=== PATIENT | male | born 2000 | race Caucasian/White ===

== ENCOUNTER → 2019-07-22 | Outpatient (CLI) | payer OTHER, SELFPAY ==
[2019-07-22 11:30] VITALS: BMI 26.5
[2019-07-22 14:07] LABS: ALB/GLOB Ratio 1.3 RATIO (0.9-2.4); AST(SGOT) 28 U/L (15-37); Alanine Aminotransfer ALT/SGPT 44 U/L (16-61); Albumin, Serum 4.4 g/dL (3.2-5.0); Alkaline Phosphatase 69 U/L (45-117); Anion Gap 6 (5-15); BUN 17 mg/dL (7-18); BUN/Creat Ratio 16.7 RATIO (10-20); Calcium,Total 9.4 mg/dL (8.5-10.1); Chloride 105 mmol/L (98-107); Creatinine, Serum 1.02 mg/dL (0.70-1.30); EST Glomerular Filtration Rate 98 mL/min (>60); Est Glom Filt Rate - Afr Amer 118 mL/min (>60); Free T3 3.5 pg/mL (2.18-3.98); Globulin 3.5 g/dL (2.2-4.2); Glucose 90 mg/dL (74-106); Magnesium 2.1 mg/dL (1.6-2.6); Potassium 4.2 mmol/L (3.5-5.1); Protein, Total 7.9 g/dL (6.4-8.2); Sodium Level 139 mmol/L (136-145); T4 Total, Thyroxin 10.7 ug/dL (4.5-12.1); Thyroid Stim Hormone (TSH) 1.08 uIU/mL (0.358-3.74)
== END | disposition home or self-care (01) ==
LOC: LAB 12:27
PROVIDERS: Referring Provider Specialist; Visit Provider Specialist
DX: R00.2 Palpitations (principal)
CPT/HCPCS: 36415; 80053; 83735; 84436; 84443; 84481

== ENCOUNTER 2019-07-30 19:17 | Emergency (ER) | payer OTHER, SELFPAY ==
[2019-07-22 11:30] VITALS: BMI 26.5
[2019-07-30 19:18] VITALS: BP 126/86; PULSE 105; RESP 18; TEMP 38.1; O2SAT 95; BMI 27.1
--- NOTE | 2019-07-30 19:44 | ED.DCSUM_ITS ---
History of Present Illness Chief Complaint: Sore Throat Informant: Patient, Family, Significant Other Onset: Days - Onset of symptoms July 28 Context: Sudden Onset Timing: Continuous Quality: Throat pain Location: Posterior pharynx Current Severity: Mild Maximum Severity: Moderate Worsened by: Swallowing Relieved by: Nothing Associated Symptoms: Fever without rhinorrhea or cough Narrative: She is a 19-year-old male presents with sore throat fever with onset July 28. He denies rhinorrhea or congestion. He denies cough. He has slight muffled voice. He denies ocular, visual auditory symptoms. Has no history of rheumatic fever, heart murmur, SBE or being immune suppressed. He denies abdominal pain specifically left upper quadrant. There is no pain referred to the shoulder in supine position or breathing. He denies myalgias arthralgias. He denies rash. Prior similar symptoms: No Recent Illness/Hospitalization: Yes - Past Medical History (1) No significant past medical history Status: Acute Past Medical History - Allergies and Home Meds Allergies/Adverse Reactions: Allergies No Known Allergies Allergy (Unverified 07/30/19 19:20) Primary Care Physician: Care Physician,No Primary [Primary Care Provider] - Prior records reviewed: No Past Medical History: None Surgical History: no surgical history Lives: With Family Smoking Status: Never smoker Alcohol: None Drugs: None Review of Systems General: Reports: Chills, Fever. Denies: Malaise, Subjective, Sweats Eyes: Denies: Visual changes - bilaterally, Blurred Vision - bilaterally, Dipl opia ENT: Reports: Sore throat. Denies: Bilateral ear pain, Rhinorrhea Cardiovascular: Denies: Chest pain, Palpitations Respiratory: Denies: Dyspnea, Cough, Dyspnea on exertion Gastrointestinal: Denies: Abdominal pain, Nausea, Vomiting, Diarrhea, Melena, Hematochezia Genitourinary: Denies: Hematuria Musculoskeletal: Denies: Myalgias, Arthralgias, Neck pain, Back pain Skin: Denies: Rash Neurological: Denies: Headache, Weakness Hematologic: Denies: Easy bruising, Easy bleeding Physical Exam Vital Signs/Narrative: Vital Signs Temp Pulse Resp BP Pulse Ox 07/30/19 19:18 100.5 F H 105 H 18 126/86 H 95 Inital Vital Signs reviewed: Yes General: Well nourished, Well developed, No Acute Distress Head: Normocephalic, Atraumatic Eyes: Perrl, EOMI. Negative for: Pale conjunctiva, Scleral icterus ENT: Moist mucous membranes, No rhinorrhea, TM's clear, - - There is swelling of the tonsils with erythema and exudate. Uvula is midline.. Negative for: Nasal congestion, Sinus tenderness Neck: Supple, Nontender, No JVD. Negative for: No lymphadenopathy Cardiovascular: Regular rhythm, No murmurs, Normal S1, Normal S2, Tachycardia Respiratory: No distress, CTA bilaterally, Chest nontender Abdomen: Soft, Nontender, Nondistended, Normal bowel sounds, No masses. Negative for: Hepatomegaly, Splenomegaly Extremities: Nontender, No edema Skin: Normal color, No rash, No Trauma. Negative for: Cyanosis, Diaphoresis, Jaundice Neurological: Alert, Oriented x3, Cranial nerves II-XII grossly intact, Normal Strength, Normal Sensation Psychological: Normal affect, Normal Mood Diagnostic/Tx/Re-eval 07/30/19 19:45 Mucosa - Throat Group A Streptococcus Rapid Screen - Preliminary Laboratory Results 07/30/19 20:05 WBC 7.9 RBC 5.24 Hgb 15.8 Hct 45.7 MCV 87.2 MCH 30.2 MCHC 34.6 RDW Std Deviation 38.2 RDW Coeff of Mitchell 11.9 Plt Count 181 MPV 9.1 Immature Gran % (Auto) 0.500 Neut % (Auto) 79.8 H Lymph % (Auto) 10.8 L [place] % (Auto) 7.6 Eos % (Auto) 1.0 Baso % (Auto) 0.3 Absolute Neuts (auto) 6.3 Absolute Lymphs (auto) 0.86 Nucleated RBC % 0 Differential Comment SCANNED White count is normal with normal differential and no atypical lymphs to suggest mononucleosis. Rapid strep is negative. Presumed viral infection - Medical Decision Making Screen was obtained. Mother arrived she informed that he was seen at urgent care and had a negative rapid screen for strep. This may be secondary to a false negative result or mononucleosis. CBC was obtained to evaluate for atypical lymphocytes. Monospot was not obtained since Monospot is inaccurate after only 2 days of illness. ED Disposition - Plan for ED Patient: Disposition: Home or Assisted Living Diagnosis: Exudative pharyngitis, Fever Instructions: PHARYNGITIS, Report Pending Referrals: Care Physician,No Primary [Primary Care Provider] - [place],[facility] [GROUP OF PHYSICIANS] - 3-5 Days if not improving
[2019-07-30 20:16] LABS: Absolute Lymphocyte Count 0.86 X10^3/uL (0.83-4.51); Absolute Neutrophil Count 6.3 X10^3/uL (2.0-7.7); Basophil# 0.02 X10^3/uL; Basophil% 0.3 % (0-1); Eosinophil# 0.08 X10^3/uL; Hematocrit 45.7 % (40-54); Hemoglobin 15.8 g/dL (13.0-16.5); Lymphocyte # 0.86 X10^3/ul (4.0); Lymphocyte % 10.8 % (19-41); Mean Corp Hgb Conc 34.6 g/dL (32-36); Mean Corpuscular Hgb 30.2 pg (27.0-32.0); Mean Corpuscular Volume 87.2 fL (80-94); Mean Platelet Vol. 9.1 fl (6.2-12.0); Monocyte% 7.6 % (0-10); NRBC Flagged by Analyzer 0 % (0-5); Neutrophil # 6.34 X10^3/uL (2.7-7.7); Neutrophil % 79.8 % (47-70); POSITIVE MORPHOLOGY YES; Platelet Count 181 K/mm3 (150-450); RBC Distribution Width CV 11.9 % (11.6-14.6); RBC Distribution Width SD 38.2 fl (35.1-43.9); Red Blood Count 5.24 M/mm3 (4.6-6.2); White Blood Count 7.9 K/mm3 (4.4-11.0)
[2019-07-30 20:19] VITALS: BP 154/91; PULSE 103; RESP 16; TEMP 37.4; O2SAT 97
[2019-07-30 20:20] LABS: Differential Indicated SCAN CRITERIA MET
[2019-07-30 20:44] LABS: Differential Comment SCANNED
[2019-07-30 21:19] VITALS: BP 146/80; PULSE 92; RESP 16; TEMP 37.3; O2SAT 95
[2019-07-30 22:29] VITALS: BP 131/78; PULSE 85; RESP 16; O2SAT 96
== END 2019-07-30 22:30 | disposition home or self-care (01) ==
PROVIDERS: Emergency Provider Emergency Medicine
DX: J02.9 Acute pharyngitis, unspecified (principal); R50.9 Fever, unspecified
CPT/HCPCS: 85025; 87880; 99282; A4216

== ENCOUNTER → 2019-08-06 14:52 | Outpatient (CLI) | payer OTHER, SELFPAY ==
[2019-07-22 11:30] VITALS: BMI 26.5
[2019-07-30 19:18] VITALS: BMI 27.1
--- NOTE | 2019-08-06 14:53 | ECHOD_ITS ---
Reason For Study: Palpitations Procedure This was a 2D Doppler, Color Flow transthoracic echocardiogram. Exam performed in department. Left Ventricle Normal size and thickness. The estimated ejection fraction is 55 %. No evidence for diastolic dysfunction. No regional wall motion abnormalities noted. Right Ventricle Normal RV size. Normal systolic function. Atria Normal left atrium. Normal right atrium. No doppler evidence for ASD. Mitral Valve There is no mitral valve stenosis. No mitral valve insufficiency. Tricuspid Valve There is no tricuspid stenosis. Trivial tricuspid valve insufficiency. Normal pulmonary artery pressure. Aortic Valve Trisinus/trileaflet aortic valve. There is no aortic stenosis. No aortic valve insufficiency. Pulmonic Valve There is no pulmonic valvular stenosis. No pulmonic valve insufficiency. Great Vessels Normal aortic root. Pericardium/Pleural No pericardial effusion. MMode/2D Measurements & Calculations LVIDd: 4.5 cm IVSd: 1.4 cm LA dimension: 3.9 cm LVIDs: 3.0 cm LVPWd: 1.2 cm FS: 32.7 % LAV(MOD-bp): 53.5 ml LA A4 area: 17.7 cm2 RA A4 area: 19.2 cm2 LAV(MOD-bp) Indexed: 24.3 ml/m2 LAV(MOD-sp2): 59.8 ml LAV(MOD-sp4): 46.7 ml Time Measurements MV dec time: 0.23 sec Doppler Measurements & Calculations MV E max jamarcus: 93.6 cm/sec Lat Peak E' Jamarcus: 16.6 cm/sec Med Peak E' Jamarcus: 18.4 cm/sec MV A max jamarcus: 49.2 cm/sec E/E' lat: 5.7 E/E' med: 5.1 MV E/A: 1.9 MV V2 max: 99.7 cm/sec MV P1/2t max jamarcus: 95.8 cm/sec Ao V2 max: 106.8 cm/sec MV max P.0 mmHg MV P1/2t: 105.5 msec Ao max P.6 mmHg MV V2 mean: 47.2 cm/sec MV dec slope: 266.0 cm/sec2 MV mean P.1 mmHg MVA(P1/2t): 2.1 cm2 MV V2 VTI: 28.8 cm LV V1 max: 104.8 cm/sec PA V2 max: 104.0 cm/sec TR max jamarcus: 242.4 cm/sec LV V1 max P.4 mmHg TR max P.5 mmHg Interpretation Summary The estimated ejection fraction is 55 %. No evidence for diastolic dysfunction. No regional wall motion abnormalities noted. Ordering Physician: Jason Hagan Referring Physician: Jason Hagan Performed By: Prince Mason RCS
== END ==
PROVIDERS: Referring Provider Specialist; Visit Provider Specialist
DX: R00.2 Palpitations (principal)
CPT/HCPCS: 93306